=== PATIENT | male | born 1990 | race Caucasian/White ===

== ENCOUNTER 2018-05-20 22:34 | Emergency (ER) | payer BC, SELFPAY ==
[2018-05-20 22:38] VITALS: BP 95/64; PULSE 86; RESP 18; TEMP 36.5; O2SAT 98
--- NOTE | 2018-05-20 22:45 | W.ED.GENAD ---
Discharge Plan Disposition Patient Disposition: HOME Condition: Improving Discharge Details Chief Complaint: Nausea/Vomit/Diar Clinical Impression: Gastroenteritis Primary Care Provider: Paloma Wood ED Provider: Rodney Hernández Home Meds and New Rx's Prescriptions: Continued ibuprofen 600 MG tablet 600 mg PO Q6H PRN (Reason: Pain) Qty: 16 RF: 0 Discharge Instructions Instructions: Gastroenteritis (ED) Additional Instructions: May use the provided Zofran every 4-6 hours if needed for nausea. Small, frequent sips of fluids to maintain hydration. Please follow-up with regular doctor if not improving in 2 days time. Return to the emergency department for any acute concern Discharge Data Discharge Date/Time-TO BE ENTERED AT DEPARTURE: 05/21/18 01:26 Medical Decision Making 20-year-old male presents from home with the abrupt onset of numerous episodes of watery vomiting and diarrhea without blood or bile. Question suspected food exposure early in the day. He appears dehydrated on exam and has blood pressure 95/64 on initial laboratory. Likely acute gastroenteritis, must exclude abnormalities. IV placed, labs obtained, patient given 2 L fluid bolus and antiemetic. Labs reassuring with white count 8, hematocrit 46, platelets 141. Chemistries unremarkable. Patient improving after 2 L fluid. Will offer antiemetic for home. Discussed with he and his family anticipated course of resolution as well as return precautions. Lab Data Lab results reviewed: Yes I reviewed the patient's lab results. Laboratory Results - last 24 hr 05/20/18 05/20/18 22:50 22:50 WBC 8.70 RBC 6.07 H Hgb 15.6 Hct 46.8 MCV 77.1 L MCH 25.7 L MCHC 33.3 RDW 13.4 Plt Count 141 MPV 9.8 Immature Gran % 0.2 Neutrophils % 78.4 Lymphocytes % 12.2 Monocytes % 6.1 Eosinophils % 2.9 Basophils % 0.2 Absolute Neutrophils 6.82 H Absolute Lymphocytes 1.06 L Absolute Monocytes 0.53 Absolute Eosinophils 0.25 Absolute Basophils 0.02 Sodium 139 Potassium 3.8 Chloride 102 Carbon Dioxide 26.0 Anion Gap 11.0 BUN 18 Creatinine 1.13 Estimated GFR/1.73 m2 >= 60.00 Glucose 118 H Calcium 9.1 Total Bilirubin 0.8 AST 19 ALT 24 Alkaline Phosphatase 74 Total Protein 7.5 Albumin 4.2 HPI General Mode of arrival: ambulatory. Date/Time Provider Initiated Documentation: 05/20/18 22:37. Limitations to Documentation: no limitations. Information obtained by: patient. History of Present Illness 28 year old M presents to the emergency department with the chief complaint of Nausea, vomiting, diarrhea multiple times at home over hours time today, described as moderate, Quality is described as constant, and is localized to the abdomen. Patient reports no radiation. Patient started experiencing this hour(s) and it has been constant. No relieving factors improve symptom(s), No exacerbating factors reported . Patient notes loss of appetite and nausea/vomiting; denies chest pain and fever/chills. Patient did receive the following treatments prior to arrival, none Related Data Home Medications Medication Instructions Recorded Confirmed ibuprofen 600 mg PO Q6H PRN #16 tablet 03/07/17 05/20/18 Previous Rx's Medication Instructions Recorded ibuprofen 600 mg PO Q6H PRN #16 tablet 03/07/17 Allergies Allergy/AdvReac Type Severity Reaction Status Date / Time amoxicillin [Amoxicillin] Allergy Unverified 05/20/18 22:40 Penicillins Allergy Unverified 05/20/18 22:40 General Stated Complaint: Nausea/Vomit/Diar ANDREW: 3 Review of Systems Review of Systems 8 systems reviewed and otherwise - [facility] Surgical History Hx of tonsillectomy (Chronic) Social History Smoking/Tobacco Use Status: Never Alcohol Intake: current Alcohol Intake frequency: a few times a month Drug use: Never Substance use type: does not use Do you feel safe at home: Yes Do you feel safe in your relationship?: Yes Exam Narrative Exam Narrative: GEN: awake, alert, oriented 3. Pleasant, well groomed, interactive. HEAD: Normocephalic, atraumatic ENT: Mucous membranes dry, oropharynx unremarkable, External ear exam unremarkable EYES: PERRL, EOMI NECK: Full ROM, no COLIN, no menigismus CHEST/RESP: Nontender, clear to auscultation bilateral, no wheeze/rhonchi/rales CARDIOVASCULAR: RRR, no murmur, rub gris. 2+ Rad pulse bilateral ABDOMEN: Soft, nontender, no mass. +Bowel sounds EXT: Full ROM, no edema, no rash Neuro: Grossly normal neurologic exam, conversant, interactive. Psych: Speech fluent, thoughts congruent, affect normal Course Vital Signs Temperature 36.5 C 05/20/18 22:38 Pulse 86 05/20/18 22:38 Respiratory Rate 18 05/20/18 22:38 Blood Pressure 95/64 L 05/20/18 22:38 Pulse Oximetry 98 05/20/18 22:38 Temperature 36.5 C 05/20/18 22:38 Temperature Source Skin 05/20/18 22:38 Pulse 86 05/20/18 22:38 Respiratory Rate 18 05/20/18 22:38 Blood Pressure 95/64 L 05/20/18 22:38 Blood Pressure Position Sitting 05/20/18 22:38 Pulse Oximetry 98 05/20/18 22:38 Oxygen Delivery Method Room Air 05/20/18 22:38 Oxygen Flow Rate 0 05/20/18 22:38
[2018-05-20] MEDS: Lactated Ringers 1,000 ML 1000 ML IV ×2 (22:50→23:40)
[2018-05-20] MEDS: Ondansetron 4 MG/2 ML VIAL IVP (22:50)
[2018-05-20 23:02] LABS: Abs Immature Grans 0.02 k/cumm (0.0-0.09); Absolute Basophil Count 0.02 k/cumm (0.0-0.2); Absolute Eosinophil Count 0.25 k/cumm (0.0-0.7); Absolute Lymphocyte Count 1.06 k/cumm (1.2-3.4); Absolute Monocyte Count 0.53 k/cumm (0.11-0.7); Absolute Neutrophil Count 6.82 k/cumm (1.2-6.7); Basophils % 0.2; Eosinophils % 2.9; HCT 46.8 % (40.0-50.0); HGB 15.6 g/dL (13.5-17.5); Immature Grans % 0.2; Lymphocytes % 12.2; Mean Corp. HGB Concentration 33.3 g/dL (32.0-36.0); Mean Corpuscular Hemoglobin 25.7 pg (27.0-33.0); Mean Corpuscular Volume 77.1 fL (80-95); Mean Platelet Volume 9.8 fL (8.0-11.0); Monocytes % 6.1; Neutrophils % 78.4; Platelet Count 141 x1000/uL (130-400); RBC 6.07 m/cumm (4.50-6.00); RBC Distribution Width 13.4 % (11.8-14.1)
[2018-05-20 23:25] LABS: ALT 24 U/L (12-78); AST 19 U/L (15-37); Albumin 4.2 g/dL (3.4-5.0); Alkaline Phosphatase 74 U/L (46-116); BUN 18 mg/dL (7-18); Bilirubin, Total 0.8 mg/dL (0.2-1.0); CREATININE 1.13 mg/dL (0.70-1.30); Calcium 9.1 mg/dL (8.5-10.1); Chloride 102 mmol/L (98-107); Glucose 118 mg/dL (70-100); Potassium 3.8 mmol/L (3.5-5.1); Sodium 139 mmol/L (136-145); Total Protein 7.5 g/dL (6.4-8.2)
[2018-05-20 23:41] VITALS: BP 98/47; PULSE 80; RESP 16; TEMP 37.5; O2SAT 98
[2018-05-21] MEDS: Ondansetron O.D.T. 4 MG TABEF 16 MG PO (00:38)
[2018-05-21 01:23] VITALS: BP 100/62; PULSE 76; RESP 16; O2SAT 98
== END 2018-05-21 01:26 | disposition home or self-care (01) ==
LOC: ER 05-21 01:21
PROVIDERS: Emergency Provider Emergency Medicine; PCP Family Medicine
DX: K52.9 Noninfective gastroenteritis and colitis, unspecified (principal)
CPT/HCPCS: 36415; 80053; 96361; 96365; 99284; 85025; J2405

== ENCOUNTER 2018-07-11 10:55 | Outpatient (REF) | payer BC, SELFPAY ==
[2018-07-11 12:32] LABS: Abs Immature Grans 0.01 k/cumm (0.0-0.09); Absolute Basophil Count 0.06 k/cumm (0.0-0.2); Absolute Eosinophil Count 0.47 k/cumm (0.0-0.7); Absolute Monocyte Count 0.49 k/cumm (0.11-0.7); Basophils % 1.2; Eosinophils % 9.3; HCT 44.5 % (40.0-50.0); HGB 14.5 g/dL (13.5-17.5); Immature Grans % 0.2; Lymphocytes % 37.8; Mean Corp. HGB Concentration 32.6 g/dL (32.0-36.0); Mean Corpuscular Hemoglobin 25.7 pg (27.0-33.0); Mean Corpuscular Volume 78.8 fL (80-95); Mean Platelet Volume 9.7 fL (8.0-11.0); Monocytes % 9.7; Neutrophils % 41.8; Platelet Count 211 x1000/uL (130-400); RBC 5.65 m/cumm (4.50-6.00); RBC Distribution Width 13.5 % (11.8-14.1); White Blood Cell Count 5.03 k/cumm (4.4-10.8)
[2018-07-11 12:58] LABS: ALT 32 U/L (12-78); AST 20 U/L (15-37); Albumin 3.7 g/dL (3.4-5.0); Alkaline Phosphatase 62 U/L (46-116); Anion Gap 6.3 mmol/L (3-11); BUN 9 mg/dL (7-18); Bilirubin, Total 0.3 mg/dL (0.2-1.0); CO2 32.7 mmol/L (21.0-32.0); CREATININE 0.93 mg/dL (0.70-1.30); Calcium 8.9 mg/dL (8.5-10.1); Chloride 104 mmol/L (98-107); Glucose 79 mg/dL (70-100); Potassium 3.6 mmol/L (3.5-5.1); Sodium 143 mmol/L (136-145); TSH (W/Ref FT4) 0.91 uIU/mL (0.358-3.74); Total Protein 6.7 g/dL (6.4-8.2)
== END 2018-07-11 11:15 ==
LOC: NCHCN 10:55
PROVIDERS: PCP Family Medicine; Visit Provider Specialist/Technologist Athletic Trainer
DX: R53.83 Other fatigue (principal); K21.9 Gastro-esophageal reflux disease without esophagitis; K58.9 Irritable bowel syndrome, unspecified
CPT/HCPCS: 80053; 84443; 85025

== ENCOUNTER 2018-07-18 20:58 | Emergency (ER) | payer BC, SELFPAY ==
--- NOTE | 2018-07-18 21:01 | W.ED.GENAD ---
Discharge Plan Disposition Patient Disposition: HOME Condition: Fair Discharge Details Chief Complaint: Laceration Clinical Impression: Finger laceration, Extensor tendon disruption Primary Care Provider: Paloma Wood ED Provider: Ana Daniel Home Meds and New Rx's Prescriptions: New cephalexin [Keflex] 500 mg capsule 500 mg PO BID Qty: 8 RF: 0 Continued ibuprofen 600 MG tablet 600 mg PO Q6H PRN (Reason: Pain) Qty: 16 RF: 0 Discharge Instructions Instructions: Cephalexin (By mouth), Finger Laceration (ED) Additional Instructions: Keep current dressing over the next 24 hours. After that, you may change and replaced with a Band-Aid. When he change his dressing, please apply splint. Tylenol and ibuprofen as needed for discomfort. He will need follow-up with orthopedics for reevaluation of tendon injury, please call tomorrow to schedule appointment. Monitor for signs of infection including redness, warmth, drainage, increased pain, fever/chills. If these arise please seek care urgently. Otherwise, please return in 1 week for suture removal. Referrals: Paloma Wood [Primary Care Provider] - Darrius Barrera MD [ [facility] STAFF PHYSICIAN] - Discharge Data Discharge Date/Time-TO BE ENTERED AT DEPARTURE: 07/18/18 22:00 Medical Decision Making Patient is a 28-year-old [id number] male presenting today with chief complaint of laceration to the right hand. He reports a prior to arrival he was washing dishes, his skin the glass and glass broke. Sustained a laceration to the dorsal aspect of the MCP joint of the right hand. Laceration approximately 1 cm in length. The extensor tendon is visualized and appears to be lacerated approximately mcc through. He continues to have good extension against resistance at the MCP, PIP and DIP joints. No sensation deficits are noted. No evidence of bony involvement. We will update the patient's tetanus today. Discussed closure techniques. Tetanus updated Procedure: Using standard sterile technique, the finger was anesthetized with 1% lidocaine plain. 3 cc was used. The sufficiently anesthetized the area. The wound was then copiously irrigated with sterile saline and chlorhexidine. Was explored to base in a bloodless field no foreign body or debris noted. Again, the extensor tendon is visualized, appears that the radial one half of the tendon has been disrupted. Attention was then turned to closure. #3 simple interrupted stitches was placed using 5-0 nylon. Patient tolerated this procedure well. Bulky dressing was placed over this. Patient I discussed wound care in depth. He will keep current dressing on the next 24 hours. After that time, he will, start dressing in place finger splint. Advised to follow-up with orthopedics, he will call them tomorrow to schedule appointment. Will prescribe Keflex prophylactically with tendon injury. Patient does have a history of allergy to penicillin but reports this causes nausea. Will be given first dose here. Patient discharged with foam and metal splint that he will apply tomorrow after removal of current dressing. This will immoblize MCP joint. We discussed signs symptoms of infection when to seek care urgently once again. Discussed activities he should avoid. All his questions and concerns were addressed in agreement this plan HPI General Mode of arrival: ambulatory. Date/Time Provider Initiated Documentation: 07/18/18 21:00. Limitations to Documentation: no limitations. Information obtained by: patient, family and RN notes reviewed. History of Present Illness 28 year old M presents to the emergency department with the chief complaint of laceration right middle finger, described as mild, with intensity rated at 1. Quality is described as burning, and is localized to the right and upper extremity. Patient reports no radiation. Patient started experiencing this minute(s) and it has been constant. No relieving factors improve symptom(s), No exacerbating factors reported . Patient notes no other symptoms.. Patient did receive the following treatments prior to arrival, none Related Data Home Medications Medication Instructions Recorded Confirmed ibuprofen 600 mg PO Q6H PRN #16 tablet 03/07/17 07/18/18 cephalexin [Keflex] 500 mg PO BID #8 cap 07/18/18 Previous Rx's Medication Instructions Recorded ibuprofen 600 mg PO Q6H PRN #16 tablet 03/07/17 cephalexin [Keflex] 500 mg PO BID #8 cap 07/18/18 Allergies Allergy/AdvReac Type Severity Reaction Status Date / Time amoxicillin [Amoxicillin] Allergy Unverified 07/18/18 21:06 Penicillins Allergy Unverified 07/18/18 21:06 General ANDREW: 3 Review of Systems Constitutional Reports as per HPI, Denies chills and Denies fever(s) Musculoskeletal Reports as per HPI Integumentary/Breasts Reports as per HPI Neurologic Reports as per HPI, Denies sensory deficit and Denies paresthesias PFSH Medical History Irritable bowel syndrome (IBS) (Chronic) Surgical History Hx of tonsillectomy (Chronic) Social History Smoking/Tobacco Use Status: Never Alcohol Intake: current Alcohol Intake frequency: a few times a month Alcohol type: beer Drug use: Never Substance use type: does not use Do you feel safe at home: Yes Do you feel safe in your relationship?: Yes Exam Const General: cooperative, healthy appearing, comfortable, no acute distress and well developed Nutritional Appearance: average body habitus and well nourished Orientation: alert and awake Resp Effort & Inspection: normal respiratory effort, able to speak in complete sentences and no respiratory distress Cardio Rate: regular rate Rhythm: regular rhythm Skin Trauma: laceration (irregular 1cm laceration dorsal MCP right middle finger, tendon visualized ) Neuro General: alert and awake Cognition: normal cognition Speech: speech normal Gait: normal gait Sensory Exam: no sensory deficits noted and normal double simultaneous stimulation Extrem General: full ROM, normal capillary refill and no joint enlargement Right upper extremity: no joint enlargement and hand Details: abnormal to inspection (laceration), normal capillary refill, neuromotor exam normal, neurosensory exam normal, tendon exam normal Location: of the 3rd digit (good strength) Details: extensor tendon, tendon exam abnormal (partial rupture at laceration), tenderness (over laceration), normal ROM of fingers, no swelling and laceration; abnormal to inspection, ROM of fingers normal, no unusual warmth, no ecchymosis and no crepitus; abnormal to inspection (laceration as above. Good extension against resistance. 1/2 tendon disrupte) Psych Appearance: grossly normal and well kempt Mental Status: mental status grossly normal Speech and Movement: speech and movement normal
[2018-07-18 21:02] VITALS: BP 132/67; PULSE 61; RESP 16; TEMP 36.5; O2SAT 97
--- NOTE | 2018-07-18 21:42 | ED.GENADUL_ITS ---
Discharge Plan Disposition Patient Disposition: HOME Condition: Fair Discharge Details Chief Complaint: Laceration Clinical Impression: Finger laceration, Extensor tendon disruption Primary Care Provider: Paloma Wood ED Provider: Ana Daniel Home Meds and New Rx's Prescriptions: New cephalexin [Keflex] 500 mg capsule 500 mg PO BID Qty: 8 RF: 0 Continued ibuprofen 600 MG tablet 600 mg PO Q6H PRN (Reason: Pain) Qty: 16 RF: 0 Discharge Instructions Instructions: Cephalexin (By mouth), Finger Laceration (ED) Additional Instructions: Keep current dressing over the next 24 hours. After that, you may change and replaced with a Band-Aid. When he change his dressing, please apply splint. Tylenol and ibuprofen as needed for discomfort. He will need follow-up with orthopedics for reevaluation of tendon injury, please call tomorrow to schedule appointment. Monitor for signs of infection including redness, warmth, drainage, increased pain, fever/chills. If these arise please seek care urgently. Otherwise, please return in 1 week for suture removal. Referrals: Paloma Wood [Primary Care Provider] - Darrius Barrera MD [ [facility] STAFF PHYSICIAN] - Discharge Data Discharge Date/Time-TO BE ENTERED AT DEPARTURE: 07/18/18 22:00 Medical Decision Making Patient is a 28-year-old [id number] male presenting today with chief complaint of laceration to the right hand. He reports a prior to arrival he was washing dishes, his skin the glass and glass broke. Sustained a laceration to the dorsal aspect of the MCP joint of the right hand. Laceration approximately 1 cm in length. The extensor tendon is visualized and appears to be lacerated approximately residential through. He continues to have good extension against resistance at the MCP, PIP and DIP joints. No sensation deficits are noted. No evidence of bony involvement. We will update the patient's tetanus today. Discussed closure techniques. Tetanus updated Procedure: Using standard sterile technique, the finger was anesthetized with 1% lidocaine plain. 3 cc was used. The sufficiently anesthetized the area. The wound was then copiously irrigated with sterile saline and chlorhexidine. Was explored to base in a bloodless field no foreign body or debris noted. Again, the extensor tendon is visualized, appears that the radial one half of the tendon has been disrupted. Attention was then turned to closure. #3 simple interrupted stitches was placed using 5-0 nylon. Patient tolerated this procedure well. Bulky dressing was placed over this. Patient I discussed wound care in depth. He will keep current dressing on the next 24 hours. After that time, he will, start dressing in place finger splint. Advised to follow-up with orthopedics, he will call them tomorrow to schedule appointment. Will prescribe Keflex prophylactically with tendon injury. Patient does have a history of allergy to penicillin but reports this causes nausea. Will be given first dose here. Patient discharged with foam and metal splint that he will apply tomorrow after removal of current dressing. This will immoblize MCP joint. We discussed signs symptoms of infection when to seek care urgently once again. Discussed activities he should avoid. All his questions and concerns were addressed in agreement this plan HPI General Mode of arrival: ambulatory . Date/Time Provider Initiated Documentation: 07/18/18 21:00 . Limitations to Documentation: no limitations . Information obtained by: patient, family and RN notes reviewed . History of Present Illness 28 year old M presents to the emergency department with the chief complaint of laceration right middle finger, described as mild, with intensity rated at 1. Quality is described as burning, and is localized to the right and upper extremity. Patient reports no radiation. Patient started experiencing this minute(s) and it has been constant. No relieving factors improve symptom(s), No exacerbating factors reported . Patient notes no other symptoms.. Patient did receive the following treatments prior to arrival, none Related Data Home Medications Medication Instructions Recorded Confirmed ibuprofen 600 mg PO Q6H PRN #16 tablet 03/07/17 07/18/18 cephalexin [Keflex] 500 mg PO BID #8 cap 07/18/18 Previous Rx's Medication Instructions Recorded ibuprofen 600 mg PO Q6H PRN #16 tablet 03/07/17 cephalexin [Keflex] 500 mg PO BID #8 cap 07/18/18 Allergies Allergy/AdvReac Type Severity Reaction Status Date / Time amoxicillin [Amoxicillin] Allergy Unverified 07/18/18 21:06 Penicillins Allergy Unverified 07/18/18 21:06 General ANDREW: 3 Review of Systems Constitutional Reports as per HPI, Denies chills and Denies fever(s) Musculoskeletal Reports as per HPI Integumentary/Breasts Reports as per HPI Neurologic Reports as per HPI, Denies sensory deficit and Denies paresthesias PFSH Medical History Irritable bowel syndrome (IBS) (Chronic) Surgical History Hx of tonsillectomy (Chronic) Social History Smoking/Tobacco Use Status: Never Alcohol Intake: current Alcohol Intake frequency: a few times a month Alcohol type: beer Drug use: Never Substance use type: does not use Do you feel safe at home: Yes Do you feel safe in your relationship?: Yes Exam Const General: cooperative, healthy appearing, comfortable, no acute distress and well developed Nutritional Appearance: average body habitus and well nourished Orientation: alert and awake Resp Effort & Inspection: normal respiratory effort, able to speak in complete sentences and no respiratory distress Cardio Rate: regular rate Rhythm: regular rhythm Skin Trauma: laceration (irregular 1cm laceration dorsal MCP right middle finger, tendon visualized ) Neuro General: alert and awake Cognition: normal cognition Speech: speech normal Gait: normal gait Sensory Exam: no sensory deficits noted and normal double simultaneous stimulation Extrem General: full ROM, normal capillary refill and no joint enlargement Right upper extremity: no joint enlargement and hand Details: abnormal to inspection (laceration), normal capillary refill, neuromotor exam normal, neurosensory exam normal, tendon exam normal Location: of the 3rd digit (good strength) Details: extensor tendon, tendon exam abnormal (partial rupture at laceration), tenderness (over laceration), normal ROM of fingers, no swelling and laceration; abnormal to inspection, ROM of fingers normal, no unusual warmth, no ecchymosis and no crepitus; abnormal to inspection (laceration as above. Good extension against resistance. 1/2 tendon disrupte) Psych Appearance: grossly normal and well kempt Mental Status: mental status grossly normal Speech and Movement: speech and movement normal
[2018-07-18] MEDS: Cephalexin 500 MG CAP PO ×2 (21:55)
== END 2018-07-18 22:00 | disposition home or self-care (01) ==
PROVIDERS: Emergency Provider Physician Assistant; PCP Family Medicine
DX: S61.210A Laceration without foreign body of right index finger without damage to nail, initial encounter (principal); S66.320A Laceration of extensor muscle, fascia and tendon of right index finger at wrist and hand level, initial encounter; W25.XXXA Contact with sharp glass, initial encounter
CPT/HCPCS: 12001; 90471; 99283

== ENCOUNTER 2019-07-30 14:50 | Inpatient (IN) | payer BC, SELFPAY ==
[2019-07-30] VITALS (39 sets, daily range): BP systolic 105–145; BP diastolic 64–86; PULSE 78–101; RESP 15–33; TEMP 36.4–36.8; O2SAT 98–100
[2019-07-30] MEDS: Normal Saline Flush 10 ML SYR IVP (15:06)
[2019-07-30] MEDS: HYDROmorphone 2 MG/ML VIAL 1 MG IVP ×3 (15:06→18:30)
[2019-07-30] MEDS: Lactated Ringers 1,000 ML 1000 ML IV (15:07)
[2019-07-30 15:11] LABS: Abs Immature Grans 0.03 k/cumm (0.0-0.09); Absolute Basophil Count 0.02 k/cumm (0.0-0.2); Absolute Eosinophil Count 0.33 k/cumm (0.0-0.7); Absolute Lymphocyte Count 2.07 k/cumm (1.2-3.4); Absolute Monocyte Count 0.68 k/cumm (0.11-0.7); Basophils % 0.2; Eosinophils % 2.9; HCT 43.2 % (40.0-50.0); HGB 14.1 g/dL (13.5-17.5); Immature Grans % 0.3 %; Lymphocytes % 18.1; Mean Corp. HGB Concentration 32.6 g/dL (32.0-36.0); Mean Corpuscular Hemoglobin 25.5 pg (27.0-33.0); Mean Corpuscular Volume 78.1 fL (80-95); Mean Platelet Volume 9.4 fL (8.0-11.0); Neutrophils % 72.5; Platelet Count 145 x1000/uL (130-400); RBC 5.53 m/cumm (4.50-6.00); RBC Distribution Width 13.2 % (11.8-14.1); White Blood Cell Count 11.41 k/cumm (4.4-10.8)
[2019-07-30 15:16] LABS: Absolute Neutrophil Count 8.27 k/cumm (1.2-6.7)
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
[2019-07-30 15:24] LABS: ALT 42 U/L (16-63); AST 31 U/L (15-37); Albumin 3.8 g/dL (3.4-5.0); Alkaline Phosphatase 74 U/L (46-116); Anion Gap 7.7 mmol/L (3-11); BUN 19 mg/dL (7-18); Bilirubin, Total 0.3 mg/dL (0.2-1.0); CO2 29.3 mmol/L (21.0-32.0); CREATININE 1.25 mg/dL (0.70-1.30); Calcium 9.2 mg/dL (8.5-10.1); Chloride 105 mmol/L (98-107); Glucose 104 mg/dL (74-106); Potassium 3.7 mmol/L (3.5-5.1); Sodium 142 mmol/L (136-145); Total Protein 7.2 g/dL (6.4-8.2)
[2019-07-30 15:29] LABS: ETHANOL BLOOD < 3.0 mg/dL (<3)
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
[2019-07-30] MEDS: Lactated Ringers 1,000 ML 150 ML IV (17:30)
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
[2019-07-30] MEDS: Lactated Ringers 1,000 ML 30 ML IV (20:50)
[2019-07-30] MEDS: Tranexamic Acid 1,000 MG/10 ML VIAL 1000 MG (21:16)
[2019-07-30] MEDS: Ketorolac 30 MG/ML VIAL (21:52)
[2019-07-30] MEDS: Bupivacaine 0.25% Pres-Free 30 ML VIAL (21:52)
--- NOTE | 2019-07-30 23:15 | DI.RAD_ITS ---
EXAM: XR HIP LT IN OR CLINICAL HISTORY: L hip fracture TECHNIQUE: 2D and realtime digital imaging was performed. CONTRAST MATERIAL: Refer to procedure report. COMPARISON: CR XR FEMUR LT from 07/30/2019 FINDINGS: Fluoroscopy was provided for Dr. Dukes during the performance of a reduction and internal fixatio n of the left femoral fracture. Please refer to the procedure report for complete details. Fluoro time: 180.5 seconds IMPRESSION:
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
[2019-07-31] VITALS (7 sets, daily range): BP systolic 112–142; BP diastolic 70–82; PULSE 67–81; RESP 16–21; TEMP 36.3–37; O2SAT 96–100
[2019-07-31] MEDS: Normal Saline Flush 10 ML SYR IVP ×3 (00:39→09:06)
[2019-07-31] MEDS: Lactated Ringers 1,000 ML 150 ML IV (00:40)
--- NOTE | 2019-07-31 01:23 | NUR.NOTE ---
Nursing Note: 07/31/2019 0016H Patient arrived on Med/surg floor from PACU. Hand of with PACU nurse done. Patient wheeled to Rm 206 and transferred to bed safely and comfortably. VSS. Denies pain, SOB and chest pressure. See shift assessment for details
[2019-07-31] MEDS: ceFAZolin 1 GM/50 ML BAG IVPB ×2 (02:15→09:55)
[2019-07-31] MEDS: Ketorolac 15 MG/ML VIAL IVP ×2 (06:04→11:14)
[2019-07-31] MEDS: Pantoprazole 40 MG TABCR PO (07:45)
[2019-07-31] MEDS: Acetaminophen 500 MG TAB 1000 MG PO (07:46)
[2019-07-31] MEDS: Enoxaparin 40 MG/0.4 ML SYR SC (07:46)
[2019-07-31] MEDS: HYDROmorphone 2 MG/ML VIAL 1 MG IVP (08:43)
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
[2019-07-31] MEDS: Ondansetron 4 MG/2 ML VIAL IVP (09:10)
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
[2019-07-31] MEDS: Bacitracin 30 GM TUBE TP (11:40)
[2019-07-31 12:19] LABS: COVID-19 RT-PCR UVMMC Result Negative (Negative)
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
--- NOTE | 2019-07-31 13:58 | PDOC.CMDIS ---
- If Service Date Differs Date of service: 07/31/19 Time of Service: 13:58 LACE Index Scoring Tool - Questions: Length of Stay (in days): 2 Acuity (Admit via E.D.?): Yes E.D. Visits: 1 - Answers: Total Score: 6 Risk of Readmission: Low Risk Care Management Discharge Reason for Hospitalization: Displaced Intertrochanteric fracture of left femur Discharge Plan: Dk will return home with no additional services at this time. He will be provided crutches prior to discharge. His girlfriend will drive him home via private vehicle. He will follow up with Ortho, as recommended. He is happy to be returning home. Patient/Family Education Needs: Review discharge instructions regarding activity levels and medications, discussion of self care needs including ask me three.
== END 2019-07-31 11:59 | disposition home or self-care (01) | DRG 482 ==
LOC: ER 19:31 → MS 20:10
PROVIDERS: Emergency Medicine; Admitting Provider Student in an Organized Health Care Education/Training Program; Emergency Provider Emergency Medicine; PCP Family Medicine; Visit Provider Student in an Organized Health Care Education/Training Program
PROC: 0QS704Z Reposition Left Upper Femur with Internal Fixation Device, Open Approach (ICD-10-PCS; CPT 27244; principal; 2019-07-30 18:00)
DX: S72.142A Displaced intertrochanteric fracture of left femur, initial encounter for closed fracture (principal); V86.56XA Driver of dirt bike or motor/cross bike injured in nontraffic accident, initial encounter
CPT/HCPCS: 27244; 36415; 73552; 80053; 96361; 96374; 96376; 97162; 97530; 99253; 99285; J1650; NC; U0003; 71045; 72040; 72170; 73501; 80320; 85025; 99284; E0114; G0378; J0690; J1100; J1885; J2001; J2405

== ENCOUNTER 2019-08-12 15:03 | Outpatient (CLI) | payer BC, SELFPAY ==
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
== END 2019-08-12 15:23 ==
PROVIDERS: PCP Family Medicine; Referring Provider Family Medicine; Visit Provider Student in an Organized Health Care Education/Training Program
DX: S72.142D Displaced intertrochanteric fracture of left femur, subsequent encounter for closed fracture with routine healing (principal)
CPT/HCPCS: 73502

== ENCOUNTER 2019-08-29 11:47 | Outpatient (CLI) | payer BC, SELFPAY ==
--- NOTE | 2019-08-29 11:15 | DI.RAD_ITS ---
EXAM: XR HIP LT AP LAT ONLY INDICATION: F/U LEFT HIP FX. COMPARISON: CR XR HIP LT AP LAT ONLY from 08/12/2019 TECHNIQUE: 2D digital imaging was performed. FINDINGS: There has been no change in the position of the orthopedic hardware or fracture alignment. There hurt s been some interval fracture healing. No new abnormalities are seen. DATA REPOSITORY: RADIATION DOSE DELIVERED:
== END 2019-08-29 12:07 ==
PROVIDERS: PCP Family Medicine; Referring Provider Family Medicine; Visit Provider Student in an Organized Health Care Education/Training Program
DX: M25.552 Pain in left hip (principal); S72.142D Displaced intertrochanteric fracture of left femur, subsequent encounter for closed fracture with routine healing
CPT/HCPCS: 73502

== ENCOUNTER 2019-09-09 15:40 | Outpatient (CLI) | payer BC, SELFPAY ==
--- NOTE | 2019-09-09 13:00 | DI.RAD_ITS ---
EXAM: XR HIP LT AP LAT ONLY CLINICAL HISTORY: left femur fracture. TECHNIQUE: 2D digital imaging was performed. COMPARISON: CR XR HIP LT AP LAT ONLY from 08/29/2019 FINDINGS: There is again seen a sideplate and screws transfixing the intertrochanteric fracture of the left fem ur. No change in alignment of the orthopedic hardware or fracture components is noted. The fracture line is still visualized. No new fractures or dislocations are seen. The soft tissues are unremark able. IMPRESSION: DATA REPOSITORY: RADIATION DOSE DELIVERED:
== END 2019-09-09 16:00 ==
PROVIDERS: PCP Family Medicine; Visit Provider Physician Assistant Surgical
DX: S72.142D Displaced intertrochanteric fracture of left femur, subsequent encounter for closed fracture with routine healing (principal); X58.XXXD Exposure to other specified factors, subsequent encounter
CPT/HCPCS: 73502

== ENCOUNTER 2019-10-07 13:17 | Outpatient (CLI) | payer BC, SELFPAY ==
--- NOTE | 2019-10-07 13:10 | DI.RAD_ITS ---
EXAM: XR HIP LT AP LAT ONLY INDICATION: s/p ORIF left hip. COMPARISON: CR XR HIP LT AP LAT ONLY from 09/09/2019 TECHNIQUE: 2D digital imaging was performed. FINDINGS: Hardware is again noted in the proximal femur. There has been interval increase in healing at the fr acture site when compared with the previous exam. No new abnormalities are seen. DATA REPOSITORY: RADIATION DOSE DELIVERED:
== END 2019-10-07 13:37 ==
PROVIDERS: PCP Family Medicine; Referring Provider Family Medicine; Visit Provider Physician Assistant
DX: Z96.642 Presence of left artificial hip joint (principal)
CPT/HCPCS: 73502

== ENCOUNTER 2022-07-21 02:20 | Emergency (ER) | payer OTHER, SELFPAY ==
[2022-07-21 02:23] VITALS: BP 133/75; PULSE 69; RESP 17; TEMP 36.7; O2SAT 95
--- NOTE | 2022-07-21 02:30 | DI.RAD_ITS ---
Exam(s) XR SACRUM COCCYX EXAM: XR SACRUM COCCYX CLINICAL HISTORY: mid sacral pain, mid sacral pain, eval for fx/mass. TECHNIQUE: 2D digital imaging was performed. COMPARISON: No exams were available for comparison FINDINGS: 3 views No evidence of sacral fracture nor sacral lesion. SI joints appear unremarkable. Left hip fixation screw noted. IMPRESSION: No significant osseous findings in the sacrum. DATA REPOSITORY: RADIATION DOSE DELIVERED:
--- NOTE | 2022-07-21 02:30 | DI.RAD_ITS ---
Exam(s) XR LUMBAR SPINE COMPLETE EXAM: XR LUMBAR SPINE COMPLETE CLINICAL HISTORY: low back pain, eval for fx/mass. TECHNIQUE: 2D digital imaging was performed. COMPARISON: Prior x-rays 07/21/2022 FINDINGS: 3 views Again noted is mild scoliosis convex left. I note there is hardware in the left hip. No evidence of acute lumbar fracture, listhesis, nor pars defects. Disc spaces continue to exhibit normal height. No osseous lesions. SI joints unremarkable. IMPRESSION: As above. No radiographic change from 07/21/2022. If clinically indicated follow-up MRI can be perf ormed. DATA REPOSITORY: RADIATION DOSE DELIVERED:
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
[2022-07-21] MEDS: Lidocaine 5% Patch 1 PATCH TP (02:54)
[2022-07-21] MEDS: Ketorolac 30 MG/ML VIAL IM (02:55)
[2022-07-21] MEDS: predniSONE 20 MG TAB 60 MG PO (02:55)
[2022-07-21] MEDS: Cyclobenzaprine 10 MG TAB, 3 TABS/BTL PO (02:57)
--- NOTE | 2022-07-21 06:06 | DI.VRAD_ITS ---
PROCEDURE INFORMATION: Exam: XR Lumbosacral Spine Exam date and time: 07/21/2022 2:48 AM Age: 32 years old Clinical indication: Low back pain; Additional info: Back pain, eval for fx/mass TECHNIQUE: Imaging protocol: Radiologic exam of the lumbosacral spine. Views: 4 or 5 views. COMPARISON: CR XR HIP LT AP LAT ONLY 10/07/2019 1:06 PM FINDINGS: Bones/joints: Mild lumbar levoscoliosis. Mild cortical irregularity along anterior inferior endplate of L5 vertebral body may be degenerative in etiology. No radiographic evidence of acute vertebral compression fracture or destructive osseous lesion. Normal alignment. Incompletely imaged orthopedic hardware in left proximal femur. Soft tissues: No acute abnormality. IMPRESSION: Mild lumbar levoscoliosis. No acute osseous abnormality. If symptoms persist, consider MRI or CT for further evaluation. Dictated and Authenticated by: Britany Eng MD. Ordering:YASH Ross MD
--- NOTE | 2022-07-21 06:09 | DI.VRAD_ITS ---
PROCEDURE INFORMATION: Exam: XR Sacrum and Coccyx, 2 or More Views Exam date and time: 07/21/2022 2:48 AM Age: 32 years old Clinical indication: Other: Mid sacral pain, eval for fx/mass TECHNIQUE: Imaging protocol: XR of the sacrum and coccyx, 2 or more views. COMPARISON: CR XR LUMBAR SPINE COMPLETE 07/21/2022 2:48 AM FINDINGS: Bones/joints: Sacral arcuate lines appear intact. Bilateral hip joints, sacroiliac joints and pubic symphysis are maintained. No destructive osseous lesion or erosive changes. Incompletely imaged orthopedic hardware in left proximal femur. Soft tissues: No acute abnormality. IMPRESSION: No acute radiographic abnormality. Dictated and Authenticated by: Britany Eng MD. Ordering:YASH Ross MD
== END 2022-07-21 03:35 | disposition home or self-care (01) ==
LOC: ER 03:35
PROVIDERS: Emergency Provider Student in an Organized Health Care Education/Training Program; PCP Family Medicine
DX: M54.59 Other low back pain (principal)
CPT/HCPCS: 96372; 99284; 72110; 72220; J1885; J7512

== ENCOUNTER 2023-04-08 17:32 | Emergency (ER) | payer OTHER, SELFPAY ==
[2023-04-08 17:34] VITALS: BP 148/88; PULSE 83; RESP 16; TEMP 36.4; O2SAT 98
[2023-04-08 17:41] VITALS: BP 148/88; PULSE 83; RESP 16; TEMP 36.4; O2SAT 98
--- NOTE | 2023-04-08 17:49 | W.ED.GENAD ---
HPI General Mode of arrival: ambulatory. Date/Time Provider Initiated Documentation: 04/08/23 17:41. Limitations to Documentation: no limitations. Information obtained by: RN notes reviewed and old records reviewed. HPI Narrative: 33-year-old male presents to the ER with chief complaint of sinus pressure and headache behind his left eye for the last 24 hours. He reports he gets worse when he bends over. Denies any ear pain throat pain fever chills or any other associated symptoms. He did take Tylenol prior to arrival. Denies any sick contacts. Related Data Home Medications Medication Instructions Recorded Confirmed acetaminophen 500 mg tablet 1,000 mg (2 x 500 mg) PO Q8H PRN 07/31/19 04/08/23 pain #90 tabs ibuprofen 600 mg tablet 600 mg PO TID PRN #90 tabs 07/31/19 04/08/23 doxycycline hyclate 100 mg tablet 100 mg PO BID 7 days #14 tabs 04/08/23 Previous Rx's Medication Instructions Recorded acetaminophen 500 mg tablet 1,000 mg (2 x 500 mg) PO Q8H PRN 07/31/19 pain #90 tabs ibuprofen 600 mg tablet 600 mg PO TID PRN #90 tabs 07/31/19 doxycycline hyclate 100 mg tablet 100 mg PO BID 7 days #14 tabs 04/08/23 Allergies Allergy/AdvReac Type Severity Reaction Status Date / Time amoxicillin [Amoxicillin] Allergy Intermediate Other (See Unverified 04/08/23 17:40 Comment) Penicillins Allergy Intermediate Other (See Unverified 04/08/23 17:40 Comment) General Stated Complaint: Headache ANDREW: 4 Review of Systems All systems reviewed & are unremarkable except as noted in HPI and below Constitutional Constitutional: Reports as per HPI and Reports headache(s) ENT Ears, Nose, Mouth, and Throat: Reports as per HPI, Reports facial pain, Reports headache(s), Reports sinus pain and Reports sinus pressure Neurologic Neurologic: Reports headache(s) Exam Narrative Exam Narrative: Constitutional: Alert and oriented x3. Appears stated age. Normal body habitus. Head: Normocephalic, no trauma. Eyes: Pupils PERRL, Red reflex noted, EOM's intact. Eyelids symmetrical without lesions, discharge, or swelling. ENT: Bilateral TM's WNL, External ear normal to inspection, no mastoid TTP, swelling, or erythema, Nasal turbinates WNL, no nasal discharge. Normal dentition, Posterior pharynx WNL, no exudate. Chest: RRR, Normal S1, S2, distal pulses intact. Resp: Lungs clear to auscultation bilaterally, no wheezes, rales, or rhonchi. Abdomen: Soft, non-distended, Normoactive bowel sounds all 4 quads. Musculoskeletal: Normal gait, 5/5 strength to all four extremities. Skin: No suspicious rashes or lesions. Capillary refill less than 2 sec. Neurologic: Cranial nerves II-XII intact. Alert and oriented x 3. Motor: No deficits noted. Sensory: Intact bilaterally all 4 extremities. Reflexes: DTR's intact bilaterally.. Hematologic/Lymphatic: No ecchymosis, no lymphadenopathy. HENMT Head: normal to inspection Ears: hearing grossly normal bilaterally, external ears normal and TM's normal bilaterally General nose exam: external nose normal Face and sinus: sinus tenderness frontal Mouth: oral mucosae normal, lip normal and oropharynx normal Teeth and gingiva: dentition normal Throat: posterior oropharynx normal Course Vital Signs Vital signs: Vital Signs Temperature 36.4 C L 04/08/23 17:34 Pulse 83 04/08/23 17:34 Respiratory Rate 16 04/08/23 17:34 Blood Pressure 148/88 H 04/08/23 17:34 Pulse Oximetry 98 04/08/23 17:34 Temperature 36.4 C L 04/08/23 17:41 Temperature Source Skin 04/08/23 17:41 Pulse 83 04/08/23 17:41 Respiratory Rate 16 04/08/23 17:41 Respiratory Effort Normal 04/08/23 17:41 Blood Pressure 148/88 H 04/08/23 17:41 Blood Pressure Position Sitting 04/08/23 17:41 Pulse Oximetry 98 04/08/23 17:41 Oxygen Delivery Method Room Air 04/08/23 17:41 Oxygen Flow Rate 0 04/08/23 17:41 Pain Level 8 04/08/23 17:41 Medical Decision Making 33-year-old male presents to the ER with chief complaint of sinus pressure and headache behind his left eye for the last 24 hours. He reports he gets worse when he bends over. Denies any ear pain throat pain fever chills or any other associated symptoms. He did take Tylenol prior to arrival. Denies any sick contacts. Patient is allergic to penicillin, will give doxycycline. Instructed on taking Flonase which she can get [id number]. This text was generated using [email or web address] system, please disregard any oddities of phrase or misspellings. Quality:SDOH Health Related Social Needs: No Data to Display PFSH All Active Problems Sinusitis (Acute) Closed intertrochanteric fracture of left hip (Acute 07/30/19) S/P Compression Screw Fixation: 07/30/2019 Medical History (Updated 04/08/23 @ 17:51 by Heide Bella NP) Irritable bowel syndrome (IBS) Surgical History Hx of tonsillectomy Social History Smoking/Tobacco Use Status: Never Smoking risk assessment performed?: Yes Alcohol Intake: current Alcohol Intake frequency: a few times a month Alcohol type: beer Drug use: Daily Substance use type: marijuana Housing: apartment Current gender identity: male Do you feel safe at home: Yes Do you feel safe in your relationship?: Yes PAWSS Have you Been Recently Intoxicated or Drunk Within the Last 30 days?: No Have you Ever Experienced Previous Episodes of Alcohol Withdrawal?: No Have you ever Experienced Withdrawal Seizures?: No Have you ever Experienced Delirium Tremens(DT)s?: No Have you ever undergone Alcohol Rehabilitation Treatment (i.e, inpt ot outpatient treatment programs)?: No Have you ever Experienced Blackouts?: No Have you ever Combined Alcohol with other Downers within the last 90 days?: No Have you ever Combined Alcohol with any other Substance of Abuse during the last 90 days?: No Positive Blood Alcohol level on Presentation? [PCS.BAL]: No Evidence of Increased Autonomic Activity (i.e. HR>120, tremor, sweating, agitation, nausea)?: No Result: 0 Discharge Plan Disposition Patient Disposition: Home Condition: Stable Discharge Details Clinical Impression: Sinusitis Primary Care Provider: Marina Posada ED Provider: Heide Bella Home Meds and New Rx's Prescriptions: New doxycycline hyclate 100 mg tablet 100 mg PO BID 7 Days Qty: 14 0RF No Action acetaminophen 500 mg tablet 1,000 mg PO Q8H PRN (Reason: pain) Qty: 90 3RF ibuprofen 600 mg tablet 600 mg PO TID PRNQty: 90 3RF Discharge Instructions Instructions: Sinusitis (ED) Additional Instructions: Take Flonase or similar nasal spray 1 spray in each nostril daily. Take the Antibiotic as directed with yogurt or a probiotic. Please take Tylenol or Ibuprofen with food every 4-6 hours as needed for pain and swelling. Follow up with primary care provider in 3-5 days. Return to ED sooner if any worsening or concerns. Increase oral fluids. Referrals: Marina Posada [Primary Care Provider] - 5 days Discharge Data Discharge Date/Time-TO BE ENTERED AT DEPARTURE: 04/08/23 18:03
[2023-04-08] MEDS: Doxycycline Hyclate 100 MG CAP PO (18:01)
[2023-04-08] MEDS: Doxycycline Hyclate 100 MG, 2 CAPS/BTL PO (18:01)
== END 2023-04-08 18:03 | disposition home or self-care (01) ==
PROVIDERS: Emergency Provider Registered Nurse Emergency; PCP Nurse Practitioner Family
DX: J01.90 Acute sinusitis, unspecified (principal)
CPT/HCPCS: 99283; 99284

== ENCOUNTER 2024-07-06 08:41 | Emergency (ER) | payer SELFPAY ==
[2024-07-06 08:42] VITALS: BP 130/82; PULSE 66; RESP 16; TEMP 36.4; O2SAT 96
[2024-07-06 08:46] VITALS: BP 130/82; PULSE 66; RESP 16; TEMP 36.4; O2SAT 96
[2024-07-06 08:49] VITALS: RESP 15
--- NOTE | 2024-07-06 09:09 | ED.GENADUL_ITS ---
Discharge Plan Disposition Patient Disposition: Home Condition: Stable Discharge Details Clinical Impression: Weakness Primary Care Provider: Marina Posada ED Provider: Heide Bella Home Meds and New Rx's Prescriptions: No Action acetaminophen 500 mg tablet 1,000 mg PO Q8H PRN (Reason: pain) Qty: 90 3RF ibuprofen 600 mg tablet 600 mg PO TID PRNQty: 90 3RF Discharge Instructions Instructions: Generalized Weakness, Fatigue ED Additional Instructions: At this time no evidence for electrolyte abnormality, no evidence for infection or anemia. No pneumonia on the chest x-ray. Negative for COVID flu and RSV, negative for strep. Sodium and potassium, magnesium, kidney functions and liver functions are all within normal limits. At this time I do recommend that you have close follow-up with your primary care provider to discuss possible further testing and to establish care. Follow up with primary care provider in 3-5 days. Return to ED sooner if any worsening weakness, tingling numbness, headache blurry vision or concerns. Thank you for allowing us to care for you today. Referrals: Marina Posada [Primary Care Provider] - 3 days Discharge Data Discharge Date/Time-TO BE ENTERED AT DEPARTURE: 07/06/24 11:33 HPI General Mode of arrival: ambulatory . Date/Time Provider Initiated Documentation: 07/06/24 08:59 . Limitations to Documentation: no limitations . Information obtained by: patient, RN notes reviewed and old records reviewed . HPI Narrative: 34-year-old male presents to the ER with a chief complaint of bilateral leg weakness, fatigue and sore throat. Reports that has been worse this last week has been intermittent in the past. He reports generalized feeling of fatigue, waking up with sore throat and swollen glands and feeling as if his legs are Jell-O and want to give out. He denies any recent diarrhea he does have a history of irritable bowel syndrome, denies any problems urinating, does have a dry cough. Denies smoking or drugs does endorse daily alcohol. Denies any numbness or tingling or weakness in his arms. No recent known tick bites however he does report that he had a couple of ticks on him. He does have a primary care provider but has not seen them recently. Denies any fever or chills. Related Data Home Medications ?Medication ?Instructions ?Recorded ?Confirmed acetaminophen 500 mg tablet 1,000 mg (2 x 500 mg) PO Q8H PRN 07/31/19 07/06/24 pain #90 tabs ibuprofen 600 mg tablet 600 mg PO TID PRN #90 tabs 07/31/19 07/06/24 Previous Rx's ?Medication ?Instructions ?Recorded acetaminophen 500 mg tablet 1,000 mg (2 x 500 mg) PO Q8H PRN 07/31/19 pain #90 tabs ibuprofen 600 mg tablet 600 mg PO TID PRN #90 tabs 07/31/19 Allergies Allergy/AdvReac Type Severity Reaction Status Date / Time amoxicillin (Amoxicillin) Allergy Intermediate Other (See Unverified 07/06/24 08:46 Comment) Penicillins Allergy Intermediate Other (See Unverified 07/06/24 08:46 Comment) General Stated Complaint: GenMedical ANDREW: 4 Review of Systems All systems reviewed & are unremarkable except as noted in HPI and below Constitutional Constitutional: Reports as per HPI, Reports fatigue, Reports lethargy and Reports weakness Musculoskeletal Musculoskeletal: Reports as per HPI, Reports muscle weakness, Denies numbness and Denies tingling Neurologic Neurologic: Denies numbness, Denies tingling and Reports weakness Endocrine Endocrine: Reports fatigue Exam Narrative Exam Narrative: Constitutional: Alert and oriented x3. Appears stated age. Normal body habitus. Head: Normocephalic, no trauma. Eyes: Pupils PERRL, Red reflex noted, EOM's intact. Eyelids symmetrical without lesions, discharge, or swelling. ENT: Bilateral TM's WNL, External ear normal to inspection, no mastoid TTP, swelling, or erythema, Nasal turbinates WNL, no nasal discharge. Normal dentition, Posterior pharynx slightly erythemic, uvula midline no exudate. Chest: RRR, Normal S1, S2, distal pulses intact. Resp: Lungs clear to auscultation bilaterally, no wheezes, rales, or rhonchi. Abdomen: Soft, non-distended, Normoactive bowel sounds all 4 quads. Musculoskeletal: Normal gait, Moves all 4 extremities without difficulty. Skin: No suspicious rashes or lesions. Capillary refill less than 2 sec. Neurologic: Cranial nerves II-XII intact. Alert and oriented x 3. Motor: No deficits noted. Sensory: Intact bilaterally all 4 extremities. Hematologic/Lymphatic: No ecchymosis, no lymphadenopathy. Course Vital Signs Vital signs: Vital Signs Temperature 36.4 C 07/06/24 08:42 Pulse 66 07/06/24 08:42 Respiratory Rate 16 07/06/24 08:42 Blood Pressure 130/82 07/06/24 08:42 Pulse Oximetry 96 07/06/24 08:42 Temperature 36.4 C 07/06/24 08:46 Temperature Source Oral 07/06/24 08:46 Pulse 66 07/06/24 08:46 Respiratory Rate 15 07/06/24 08:49 Respiratory Effort Normal 07/06/24 08:49 Respiratory Depth Normal 07/06/24 08:49 Respiratory Pattern Normal 07/06/24 08:49 Blood Pressure 130/82 07/06/24 08:46 Blood Pressure Position Sitting 07/06/24 08:46 Pulse Oximetry 96 07/06/24 08:46 Oxygen Delivery Method Room Air 07/06/24 08:46 Oxygen Flow Rate 0 07/06/24 08:46 Pain Level 5 07/06/24 08:46 Medical Decision Making 34-year-old male presents to the ER with a chief complaint of bilateral leg weakness, fatigue and sore throat. Reports that has been worse this last week has been intermittent in the past. He reports generalized feeling of fatigue, waking up with sore throat and swollen glands and feeling as if his legs are Jell-O and want to give out. He denies any recent diarrhea he does have a history of irritable bowel syndrome, denies any problems urinating, does have a dry cough. Denies smoking or drugs does endorse daily alcohol. Denies any numbness or tingling or weakness in his arms. No recent known tick bites however he does report that he had a couple of ticks on him. He does have a primary care provider but has not seen them recently. Denies any fever or chills. CBC CMP magnesium tick and Lyme panel ordered Fluvid swab and strep swab. I will check for any obvious electrolyte derangement or abnormality, viral illness however I will stress close follow-up with primary care provider. Differential diagnosis includes but not limited to dehydration, anxiety, electrolyte abnormality, anemia, Lyme, viral illness. POCUS cardiac exam with Dr. Das performed, positive B-lines on the left, normal cardiac activity. Please see procedure note. Workup is largely unremarkable CBC shows no leukocytosis, no anemia platelets within normal limits, BMP also within. Tick and Lyme panel is pending at this time. Negative for rapid strep, negative for COVID flu and RSV. Chest x-ray shows no acute abnormality. At this time patient is safe to be discharged home, will have patient follow-up with PCP closely for further evaluation and management. This text was generated using Related Content Database (RCDb)ation system, please disregard any oddities of phrase or misspellings. Medical Records Medical records reviewed: Yes I reviewed the patient's medical records. Lab Data Lab results reviewed: Yes I reviewed the patient's lab results. Labs: 07/06/24 09:18 Tonsil - Not Specified Group A Streptococcus Culture - Pending Laboratory Tests Range/Units 07/06/24 07/06/24 09:18 09:25 WBC (4.4-10.8) 10^3/uL 7.71 RBC (4.36-5.78) 10^6/uL 5.98 H Hgb (13.5-17.5) g/dL 15.4 Hct (40.0-50.0) % 48.3 MCV (80-95) fL 81 MCH (27.0-33.0) pg 25.8 L MCHC (32.0-36.0) % 31.9 L RDW (11.8-14.1) % 13.2 Plt Count (130-400) 10^3/uL 178 MPV (8.0-11.0) fL 9.6 Immature Gran % % 0.3 Neutrophils % % 56.2 Lymphocytes % % 30.0 Monocytes % % 6.2 Eosinophils % % 6.5 Basophils % % 0.8 Nucleated RBC % (0.0-0.3) % 0.0 Absolute Neutrophils (1.2-6.7) 10^3/uL 4.34 Absolute Lymphocytes (1.2-3.4) 10^3/uL 2.31 Absolute Monocytes (0.1-0.8) 10^3/uL 0.48 Absolute Eosinophils (0.0-0.7) 10^3/uL 0.50 Absolute Basophils (0.0-0.2) 10^3/uL 0.06 Sodium (136-145) mmol/L 141 Potassium (3.5-5.1) mmol/L 3.9 Chloride (98-107) mmol/L 105 Carbon Dioxide (21.0-32.0) mmol/L 31.8 Anion Gap (3-11) mmol/L 4.2 BUN (7-18) mg/dL 12 Creatinine (0.70-1.30) mg/dL 1.1 Est GFR (CKD-EPI 2020) (mL/min/1.73m2) 90.34 Glucose (74-106) mg/dL 89 Calcium (8.5-10.1) mg/dL 9.2 Magnesium (1.8-2.4) mg/dL 2.0 Total Bilirubin (0.2-1.0) mg/dL 0.4 AST (15-37) U/L 19 ALT (16-63) U/L 34 Alkaline Phosphatase (46-116) U/L 92 Total Protein (6.4-8.2) g/dL 7.6 Albumin (3.4-5.0) g/dL 3.8 COVID-19 Source Nasopharynx SARS-CoV-2 (PCR) (Negative) Negative Influenza Type A (PCR) (Negative) Negative Influenza Type B (PCR) (Negative) Negative RSV (PCR) (Negative) Negative Quality:SDOH Health Related Social Needs: No Data to Display PFSH All Active Problems Weakness (Acute) Closed intertrochanteric fracture of left hip (Acute 07/30/19) S/P Compression Screw Fixation: 07/30/2019 Medical History (Updated 07/06/24 @ 11:20 by Heide Bella NP) Irritable bowel syndrome (IBS) Surgical History Hx of tonsillectomy Social History Smoking/Tobacco Use Status: Never Smoking risk assessment performed?: Yes Alcohol Intake: current Alcohol Intake frequency: a few times a month Alcohol type: beer Drug use: Daily Substance use type: marijuana Housing: apartment Current gender identity: male Do you feel safe at home: Yes Do you feel safe in your relationship?: Yes PAWSS Have you Been Recently Intoxicated or Drunk Within the Last 30 days?: No Have you Ever Experienced Previous Episodes of Alcohol Withdrawal?: No Have you ever Experienced Withdrawal Seizures?: No Have you ever Experienced Delirium Tremens(DT)s?: No Have you ever undergone Alcohol Rehabilitation Treatment (i.e, inpt ot outpatient treatment programs)?: No Have you ever Experienced Blackouts?: No Have you ever Combined Alcohol with other Downers within the last 90 days?: No Have you ever Combined Alcohol with any other Substance of Abuse during the last 90 days?: No Result: 0
--- NOTE | 2024-07-06 09:30 | ED.PROG_ITS ---
Date of service: 07/06/24 Time of Service: 09:30 Medical Decision Making I saw this patient in conjunction with her advanced practice provider. Please see her note for complete details. On limited bedside echo patient had left- sided B-lines for which he will receive chest x-ray. 12:35 PM X-ray unremarkable. Patient was not hypoxic. He was discharged with with an empiric trial of expectant outpatient management. Quality:SDOH Health Related Social Needs: No Data to Display Discharge Plan Disposition Patient Disposition: Home Condition: Stable Discharge Details Clinical Impression: Weakness Primary Care Provider: Marina Posada ED Provider: Heide Bella Home Meds and New Rx's Prescriptions: No Action acetaminophen 500 mg tablet 1,000 mg PO Q8H PRN (Reason: pain) Qty: 90 3RF ibuprofen 600 mg tablet 600 mg PO TID PRNQty: 90 3RF Discharge Instructions Instructions: Generalized Weakness, Fatigue ED Additional Instructions: At this time no evidence for electrolyte abnormality, no evidence for infection or anemia. No pneumonia on the chest x-ray. Negative for COVID flu and RSV, negative for strep. Sodium and potassium, magnesium, kidney functions and liver functions are all within normal limits. At this time I do recommend that you have close follow-up with your primary care provider to discuss possible further testing and to establish care. Follow up with primary care provider in 3-5 days. Return to ED sooner if any worsening weakness, tingling numbness, headache blurry vision or concerns. Thank you for allowing us to care for you today. Referrals: Marina Posada [Primary Care Provider] - 3 days Discharge Data Discharge Date/Time-TO BE ENTERED AT DEPARTURE: 07/06/24 11:33 POCUS Exam (ED) Limited Cardiac Exam DATE OF EXAM: 07/06/24 TIME OF EXAM: 09:45 PROVIDER THAT PERFORMED THE STUDY: Osvaldo Das IS THIS A REPEAT EXAM DURING THIS ENCOUNTER: no REASON FOR EXAM: Other indication: Fatigue VISUALIZED STRUCTURES: Four Chambers, Left ventricle and LVOT VIEW OBTAINED: Apical 4-Chamber, Parasternal long-axis and Subxiphoid PERTINENT FINDINGS/IMPRESSION: No pericardial effusion and No RV dilation DIFFERENTIAL DIAGNOSES: Aortic outflow track less than 4 cm, good squeeze, RV less than LV, no significant pericardial effusion. Isolated left-sided B-lines. Exam complete
[2024-07-06 09:37] LABS: Abs Immature Grans 0.02 10^3/uL (0.0-0.06); Absolute Basophil Count 0.06 10^3/uL (0.0-0.2); Absolute Lymphocyte Count 2.31 10^3/uL (1.2-3.4); Absolute Monocyte Count 0.48 10^3/uL (0.1-0.8); Absolute Neutrophil Count 4.34 10^3/uL (1.2-6.7); Basophils % 0.8 %; Eosinophils % 6.5 %; HCT 48.3 % (40.0-50.0); HGB 15.4 g/dL (13.5-17.5); Immature Grans % 0.3 %; MCH 25.8 pg (27.0-33.0); MCHC 31.9 % (32.0-36.0); MCV 81 fL (80-95); MPV 9.6 fL (8.0-11.0); Monocytes % 6.2 %; Neutrophils % 56.2 %; Platelet Count 178 10^3/uL (130-400); RBC 5.98 10^6/uL (4.36-5.78); RDW 13.2 % (11.8-14.1); RDW-SD 38.7 fL; WBC 7.71 10^3/uL (4.4-10.8)
[2024-07-06 09:48] LABS: ALT 34 U/L (16-63); AST 19 U/L (15-37); Albumin 3.8 g/dL (3.4-5.0); Alkaline Phosphatase 92 U/L (46-116); Anion Gap 4.2 mmol/L (3-11); BUN 12 mg/dL (7-18); Bilirubin, Total 0.4 mg/dL (0.2-1.0); CO2 31.8 mmol/L (21.0-32.0); CREATININE 1.1 mg/dL (0.70-1.30); Calcium 9.2 mg/dL (8.5-10.1); Chloride 105 mmol/L (98-107); Estimated GFR 90.34 (mL/min/1.73m2); Glucose 89 mg/dL (74-106); Potassium 3.9 mmol/L (3.5-5.1); Sodium 141 mmol/L (136-145); Total Protein 7.6 g/dL (6.4-8.2)
[2024-07-06 10:08] LABS: COVID-19 PCR Negative (Negative); Influenza A PCR Negative (Negative); Influenza B PCR Negative (Negative); RSV PCR Negative (Negative)
[2024-07-06 10:09] LABS: Source Nasopharynx
--- NOTE | 2024-07-06 10:39 | DI.RAD_ITS ---
Exam(s) XR CHEST 2V PA LATERAL EXAM: XR CHEST 2V PA LATERAL CLINICAL HISTORY: Fatigue TECHNIQUE: 2D digital imaging was performed of the chest. Two images were obtained. PA and lateral views were obtained. COMPARISON: No exams were available for comparison FINDINGS: MEDIASTINUM: Normal. HEART: Normal. PULMONARY VASCULATURE: Normal. LUNGS: Clear. PLEURAL SPACE: No pleural effusion or pneumothorax. BONE:Within normal limits for the patient's age. OTHER FINDINGS:Normal. IMPRESSION: No acute pulmonary findings. DATA REPOSITORY: RADIATION DOSE DELIVERED:
[2024-07-06 11:32] VITALS: BP 134/81; PULSE 53; RESP 12; O2SAT 99
[2024-07-08 11:45] LABS: Lyme Ab w Rflx to Lyme Confirm Negative (Negative)
[2024-07-10 01:07] LABS: Anaplasma phagocytophilum Negative (Negative); B. miyamotoi PCR Negative (Negative); Babesia divergens/MO-1 Negative (Negative); Babesia duncani Negative (Negative); Babesia microti Negative (Negative); Ehrlichia chaffeensis Negative (Negative); Ehrlichia ewingii/canis Negative (Negative); Ehrlichia muris eauclairensis Negative (Negative)
== END 2024-07-06 11:33 | disposition home or self-care (01) ==
PROVIDERS: Emergency Provider Registered Nurse Emergency; PCP Nurse Practitioner Family
DX: R53.1 Weakness (principal); J02.9 Acute pharyngitis, unspecified
CPT/HCPCS: 00123; 36415; 80053; 87637; 87798; 87880; 93308; 99284; 71046; 83735; 85025; 86618; 87081